=== PATIENT | male | born 1960 | race Caucasian/White ===

== ENCOUNTER 2019-10-16 00:35 | Day surgery (SDC) | payer BC, SELFPAY ==
--- NOTE | 2019-10-14 12:47 | PM.IMHP ---
H&P: HPI History of Present Illness Chief complaint: RIght Ureteral Stone Narrative: Eugene Soliman is a 59 year old male with a history of recurrence urolithiasis. He was recently seen by my partner in [facility] where imaging revealed a 7 millimeter left mid ureteral calculus. Patient continues to have intermittent left flank pain with nausea and vomiting. Review of Systems Cardiovascular: Cardiovascular: Denies chest pain, Denies lightheadedness, Denies palpitations and Denies dyspnea Respiratory: Respiratory: Denies dyspnea Gastrointestinal: Gastrointestinal: Denies diarrhea, Denies nausea and Denies vomiting Genitourinary: Genitourinary: Denies hematuria and Denies dysuria Endocrine: Endocrine: Denies palpitations Exam Const: General: healthy appearing, comfortable, no acute distress and well developed; No confusion Nutritional Appearance: well nourished Orientation/consciousness: patient oriented x3 and No confusion HENMT: Head: normocephalic and atraumatic Ears: external ears normal Face and sinus: normal facial exam Mouth: Yes lip normal Teeth and gingiva: dentition normal Eyes: General: appearance normal, both eyes and all related structures Alignment and Position: alignment normal Eyelids: eyelids normal Cornea: corneas normal Pupils: Equal, round and reactive pupils present EOM: EOMs intact bilaterally Neck: Neck: normal visual inspection, full ROM and no JVD Chest: Chest palpation & inspection: normal inspection of the chest Resp: Effort & Inspection: normal respiratory effort and no use of accessory muscles Auscultation: clear to auscultation bilaterally Cardio: Jugular venous distension: no JVD Rate: regular rate Rhythm: regular rhythm GI: Inspection: normal to inspection GI Palp: No abdominal tenderness, No Guarding due to palpation present (GI) and No Rebound tenderness present Auscultation: normal bowel sounds : General: Yes bladder normal to palpation and No CVA tenderness Back/Spine/Pelvis: Back: No CVA tenderness Skin: General skin exam: normal color and no rashes or lesions noted Neuro: General: patient oriented x3, no focal motor deficits and No confusion Cranial nerves: Yes Equal, round and reactive pupils present Speech: normal speech Extrem: General: normal to inspection, no cyanosis and no edema Psych: Mental Status: mental status grossly normal Assessment and Plan Assessment and plan (1) Left ureteral stone: Code(s): N20.1 - Calculus of ureter Status: Acute Assessment and Plan: Left ESWL
[2019-10-14 15:18] VITALS: BMI 26.4
[2019-10-16] VITALS (7 sets, daily range): BP systolic 118–134; BP diastolic 76–90; PULSE 57–70; RESP 10–20; TEMP 36.2–36.3; O2SAT 92–96
--- NOTE | ~2019-10-16 | XR_ITS ---
EXAMINATION: XR abdomen/kub 1V INDICATION: Right-sided urinary tract calculi TECHNIQUE: Supine views of the abdomen were obtained on 2 radiographs. COMPARISON: None FINDINGS: A right internal ureteral stent is in expected position. There appears to be a 4 mm stone a djacent to the stent at the level of the right L5 transverse process. Stones measuring up to 3 mm are seen in the left kidney lower pole. There is a approximately 10 cm density projecting over the lower pole of the right kidney. There are phleboliths of the pelvis. The bowel gas pattern is normal. IMPRESSION: 1. Right internal ureteral stent in expected position with apparent 4 mm stone projecting adjacent to the stent at the level of the right L5 transverse process. 2. Left nephrolithiasis. 3. 10 cm density projecting over the right kidney lower pole, possibly a cyst. Recommend comparison w ith any available prior imaging. Reviewed, dictated and finalized at location B. IMPRESSION: 1. Right internal ureteral stent in expected position with apparent 4 mm stone projecting adjacent to the stent at the level of the right L5 transverse proces s. 2. Left nephrolithiasis. 3. 10 cm density projecting over the right kidney lower pole, possibly a cyst. Recommend comparison with any available prior imaging.
--- NOTE | 2019-10-16 06:58 | ECG_ITS ---
Measurements Intervals [place] Rate: 55 P: 57 VT: 162 QRS: 11 QRSD: 94 T: -12 QT: 405 QTc: 388 Interpretive Statements SINUS BRADYCARDIA BORDERLINE ST-T WAVE ABNORMALITY- INFERIOR LEADS BORDERLINE ECG Electronically Signed On 10-16-2019 9:24:46 CDT by Ronald Romero D.O.
--- NOTE | 2019-10-16 08:28 | WPDHPUPDATE1 ---
History and Physical Update Update Date/Time: 10/16/19 08:28 History and Physical has been reviewed, including an updated exam of the patient. There are NO changes in the patient's condition. Risks, benefits, and alternatives have been discussed and questions answered. Patient agrees to proceed with procedure.
[2019-10-16] MEDS: LACTATED RINGERS 1,000 ML 30 ML IV CONT (08:55)
--- NOTE | 2019-10-16 09:06 | SUR.PREOP ---
0850- DR. CLINTON SPOKE WITH OFFICE AND THEY STATED THAT [facility] HAD RESULTS FROM URINE AND THEY ARE NEGATIVE. DR. CLINTON UPDATED PT AND RN.
[2019-10-16 09:18] LABS: INR 1.1; Prothrombin Time 14.2 Seconds (11.1-14.7)
[2019-10-16 09:19] LABS: Partial Thromboplastin Time 27.3 SECONDS (22.3-36.8)
--- NOTE | 2019-10-16 09:21 | WPDANESEPPF ---
Anes - Initial Pre Proc Eval Procedure: Operation Date: 10/16/19 09:30 Proposed Procedures p Right Ureteral Extracorporeal Shock Wave Lithotripsy, Right Stent Removal - Jovani Parsons MD Date/Time: 10/16/19 09:21 Surgeon: Jovani Parsons MD Pre Op Diagnosis: RIght Ureteral Stone Patient Data Age: 59 Gender: M Height: 6 ft Weight: 83.01 kg Last Vital Signs Temp 36.3 C L 10/16/19 09:01 Pulse 70 10/16/19 09:01 Resp 20 10/16/19 09:01 BP 124/86 10/16/19 09:01 Pulse Ox 93 10/16/19 09:01 Allergies Allergy/AdvReac Type Severity Reaction Status Date / Time No Known Allergies Allergy Verified 10/14/19 16:03 Home Medications Medication Instructions Recorded Confirmed Type albuterol sulfate [Ventolin HFA] 1 puff INHALATION 10/14/19 History amlodipine 5 mg PO DAILY 10/14/19 10/14/19 History bisoprolol-hydrochlorothiazide 1 tablet PO DAILY 10/14/19 10/14/19 History brinzolamide-brimonidine 1 drp OPHTHALMIC (EYE) BID 10/14/19 10/14/19 History [Simbrinza] celecoxib 200 mg PO DAILY 10/14/19 10/14/19 History fluticasone furoate-vilanterol 1 inh INHALATION DAILY 10/14/19 10/14/19 History [Breo Ellipta] gabapentin 800 mg PO TID 10/14/19 10/16/19 History hydrocodone-acetaminophen 1 tablet PO Q4H PRN 10/14/19 10/16/19 History loteprednol etabonate [Lotemax] 10/14/19 History montelukast 10 mg PO DAILY 10/14/19 10/14/19 History ondansetron 8 mg PO Q8H PRN 10/14/19 10/14/19 History pantoprazole 40 mg PO DAILY 10/14/19 10/14/19 History potassium citrate 1,620 mg PO DAILY 10/14/19 10/14/19 History tamsulosin 0.4 mg PO DAILY 10/14/19 10/14/19 History zolpidem 10 mg PO HS PRN 10/14/19 10/14/19 History Laboratory Tests 10/16/19 08:43 PT 14.2 Seconds Seconds (11.1-14.7) INR 1.1 APTT 27.3 SECONDS SECONDS (22.3-36.8) Patient hx anesthesia problems: none Family hx anesthesia problems: none PMFSH Past Medical History Medical History Asthma GERD (gastroesophageal reflux disease) HLA B27 (HLA B27 positive) Hypertension Neuropathy Anes - Eval Final PreProcedure Day of Procedure 10/16/19 09:21 Patient weight: normal Heart: regular rate and rhythm Lungs: clear to auscultation Airway: Mallampati scale class III Neurological: alert and oriented Last oral intake: >/= 8 hours ASA classification: III Emergent: no Anesthetic plan: proceed Anesthesia type and monitoring: general LMA and standard monitoring Informed Consent: The patient's anesthetic plan and its attendant risks and benefits were discussed with the patient/family/POA. Questions were solicited and answers provided to the satisfaction of the patient/family/POA.
[2019-10-16] MEDS: IBUPROFEN IV 400 MG in SODIUM CHLORIDE 0.9% IV 100 ML 200 MG IVPB (09:42)
[2019-10-16] MEDS: ceFAZolin 2 GM/D5W 50 ML 2 GM/50 ML BAG IVPB (09:59)
--- NOTE | 2019-10-16 10:36 | SUR.OPER ---
EBL:0CC
--- NOTE | 2019-10-16 10:48 | PM.PROC ---
Procedure Note - Detailed Date of procedure: 10/16/19 Pre-op diagnosis: RIght Ureteral Stone Post-op diagnosis: same Procedure performed: 1. Cystoscopy, right ureteral stent removal 2. Right ESWL Description of procedure: The patient was brought to the operative suite where he was placed in the supine position on the Dornier lithotripter table. Flexible cystoscopy was undertaken with a 16F flexible cystoscopy. There were no urethral strictures. The prostatic uretehral estimated lenght was 1.5cm. There was mild obstruction of the prostatic urethra with no median lobe enlargement. The bladder mucosa was normal and there was a single, orthotopic ureteral orifice bilaterally. The tip of the indwelling stent is grasped and it is removed with ease. The patient was then positioned in the supine position with the focal point of the lithotriptor on a 7-8mm right mid-ureteral calculus. A total of 3000 shocks were delivered at a power setting of . There appeared to be good fragmentation of the stone. The patient tolerated the procedure well and was taken to the recovery room in good condition. Anesthesia: GLMA Surgeon: Jovani Parsons MD Estimated blood loss (mL): 0 Drains: No Packing: No Pathology: none sent Complications: No immediate complications Condition: stable Disposition: PACU
== END 2019-10-16 12:30 | disposition home or self-care (01) ==
PROVIDERS: PCP Family Medicine; Visit Provider Urology
PROC: (CPT 50590; principal; 2019-10-16 09:30)
DX: N20.1 Calculus of ureter (principal); I10 Essential (primary) hypertension; J45.909 Unspecified asthma, uncomplicated; G62.9 Polyneuropathy, unspecified; K21.9 Gastro-esophageal reflux disease without esophagitis; Z15.89 Genetic susceptibility to other disease
CPT/HCPCS: 52310; 50590; 36415; 74018; 85610; 85730; 93005; A9270; J0690; J1100; J1741; J2370; J2405; J2704; J3010; J7030; J7120